=== PATIENT | female | born 1965 | race Caucasian/White ===

== ENCOUNTER → 2019-04-14 14:25 | Outpatient (ROUT) | payer OTHER, MEDICAID, SELFPAY ==
[2019-04-14 15:12] LABS: TSH w/ Reflex to FT4 1.19 uIU/mL (0.47-4.68)
== END ==
PROVIDERS: Visit Provider Internal Medicine
DX: E03.9 Hypothyroidism, unspecified (principal)
CPT/HCPCS: 84443

== ENCOUNTER → 2019-04-30 18:12 | Outpatient (ROUT) | payer OTHER, MEDICAID, SELFPAY ==
[2019-04-30 18:55] LABS: Erythrocyte Sedimentation Rate 4 MM/HR (0-20)
[2019-04-30 19:04] LABS: C-Reactive Protein Quant < 0.5 mg/dL (<1.0)
== END ==
PROVIDERS: Visit Provider Internal Medicine
DX: M25.50 Pain in unspecified joint (principal)
CPT/HCPCS: 85651; 86140

== ENCOUNTER → 2020-04-19 19:30 | Outpatient (ROUT) | payer OTHER, MEDICAID, SELFPAY ==
[2020-04-19 20:31] LABS: TSH w/ Reflex to FT4 1.19 uIU/mL (0.47-4.68)
== END ==
PROVIDERS: Visit Provider Internal Medicine
DX: E03.9 Hypothyroidism, unspecified (principal)
CPT/HCPCS: 84443

== ENCOUNTER → 2020-06-24 11:31 | Outpatient (CLI) | payer OTHER, MEDICAID, SELFPAY ==
[2020-06-24 12:50] LABS: Add Manual Diff / Slide Review NO; Basophils Absolute Auto 0 /uL (0-100); Basophils Percent Auto 0.8 % (0-2); Eosinophils Absolute Auto 100 /uL (0-450); Eosinophils Percent Auto 1.7 % (2-4); Hematocrit 42.3 % (36-46); Lymphocytes Absolute Auto 1300 /uL (1100-4500); Lymphocytes Percent Auto 22.7 % (25-40); Mean Corpuscular Hemoglobin 30.3 PG (26-34); Mean Corpuscular Volume 91.9 fL (80-100); Monocytes Absolute Auto 400 /uL (0-900); Monocytes Percent Auto 7.4 % (3-14); Neutrophils Absolute Auto 4000 /uL (1500-7000); Neutrophils Percent Auto 67.4 % (50-75); Platelet Count 267 X10^3/uL (150-400); Red Cell Distribution Width 13.3 % (11.6-14.8); White Blood Cell Count 5.9 X10^3/uL (4.5-11.0)
[2020-06-24 13:08] LABS: Alanine Aminotransferase 23 IU/L (<35); Albumin Globulin Ratio 1.5 (1.0-2.8); Alkaline Phosphatase 48 U/L (38-126); Aspartate Aminotransferase 33 IU/L (14-36); BUN Creatinine Ratio 19.4 (6-22); Bilirubin Total 0.5 mg/dL (0.2-1.3); Blood Urea Nitrogen 14 mg/dL (7-17); Calcium 10.1 mg/dL (8.4-10.2); Carbon Dioxide 30 mmol/L (22-32); Chloride 100 mmol/L (98-107); Estimated Glomerular Filt Rate > 60.0 mL/min (>60); Globulin 3.3 g/dL (1.7-4.1); Glucose 97 mg/dL (70-100); HEMOLYSIS < 15 (0-50); Potassium 4.1 mmol/L (3.4-5.1); Sodium 138 mmol/L (137-145); Total Protein 8.3 g/dL (6.3-8.2)
[2020-06-24 13:09] LABS: C-Reactive Protein Quant < 0.5 mg/dL (<1.0)
[2020-06-24 13:11] LABS: Rheumatoid Factor < 8.6 IU/mL (<12.0)
[2020-06-24 13:22] LABS: Erythrocyte Sedimentation Rate 4 MM/HR (0-20)
[2020-06-25 14:36] LABS: SS A Ro Sjogrens Antibody < 0.2 AI (0.0-0.9); SS B La Sjogrens Antibody < 0.2 AI (0.0-0.9)
[2020-06-27 13:09] LABS: ANA Screen, IFA Negative (.)
[2020-06-27 20:07] LABS: CCP Antibodies IgG/IgA 5 units (0-19)
== END ==
PROVIDERS: PCP Internal Medicine; Referring Provider Internal Medicine; Visit Provider Internal Medicine
DX: R68.2 Dry mouth, unspecified (principal); H04.123 Dry eye syndrome of bilateral lacrimal glands
CPT/HCPCS: 36415; 80053; 85025; 85651; 86038; 86140; 86200; 86235; 86430

== ENCOUNTER → 2022-02-12 16:51 | Outpatient (CLI) | payer OTHER, MEDICAID, SELFPAY ==
--- NOTE | 2022-02-12 16:53 | DI.RAD.S_ITS ---
PROCEDURE: XR CERVICAL SPINE 2V OR 3V INDICATIONS: neck pain TECHNIQUE: 3 view(s) of the cervical spine were acquired. COMPARISON: None. FINDINGS: Degenerative straightening of the usual cervical lordosis. Otherwise normal alignment. Vertebral body heights maintained. No suspicious lytic or blastic osseous lesion. From C4-C5 through C6-C7, there is disc height loss with degenerative endplate change including posterior osteophytic ridging of the endplates, along with facet and uncovertebral hypertrophy. IMPRESSION: Moderate midcervical degenerative changes. Consider MRI. Dictated by: Stew Lacy M.D. on 02/13/2022 at 14:32 Approved by: Stew Lacy M.D. on 02/13/2022 at 14:41
[2022-02-12 18:13] LABS: Glucose 105 mg/dL (70-100)
[2022-02-12 18:58] LABS: Hemoglobin A1C% w Est Avg Glu 5.5 % (4.0-6.0)
== END ==
PROVIDERS: PCP Internal Medicine; Referring Provider Internal Medicine; Visit Provider Internal Medicine
DX: M47.812 Spondylosis without myelopathy or radiculopathy, cervical region (principal); R73.01 Impaired fasting glucose
CPT/HCPCS: 36415; 72040; 82947; 83036

== ENCOUNTER → 2022-03-06 15:16 | Outpatient (CLI) | payer OTHER, MEDICAID, SELFPAY ==
--- NOTE | 2022-03-06 | DI.MG.S_ITS ---
BILATERAL DIGITAL SCREENING MAMMOGRAM 3D/2D WITH CAD: 03/06/2022 CLINICAL: Routine screening. Family history of breast cancer. Comparison is made to exams dated: 05/19/2018 mammogram, 02/16/2015 mammogram, and 04/24/2012 mammogram - [facility]. Both breasts are extremely dense, which lowers the sensitivity of mammography (category d />75% glandular tissue). Current study was also evaluated with a Computer Aided Detection (CAD) system. There are benign calcifications in the left breast. No significant masses, calcifications, or other findings are seen in either breast. There has been no significant interval change. IMPRESSION: BENIGN There is no mammographic evidence of malignancy. A 1 year screening mammogram is recommended. Based on Tyrer-Cuzick model (a risk assessment model), the patient's lifetime risk is 29.7% and her 10 year risk is 11.8%. If a patient has an elevated risk, a more comprehensive evaluation should be considered and/or a referral to a genetic counselor. The [employer], [employer], and NCCN Guidelines advise the consideration of Breast MRI as an adjunct to screening mammography in patients whose Lifetime risk to develop breast cancer is 20% or higher. This exam was interpreted at Station ID: [id number]. NOTE: For mammograms, a report in lay terms will be sent to the patient. Approximately 15% of breast malignancies will not be visualized mammographically. In the management of a palpable breast mass, a negative mammogram must not discourage biopsy of a clinically suspicious lesion. Electronically Signed By: Alethea salazar/tonja:03/07/2022 08:50:38 letter sent: Normal Exam ACR BI-RADS Category 2: Benign Finding(s) 3342F
== END ==
PROVIDERS: PCP Internal Medicine; Referring Provider Internal Medicine; Visit Provider Internal Medicine
DX: Z12.31 Encounter for screening mammogram for malignant neoplasm of breast (principal); Z80.3 Family history of malignant neoplasm of breast
CPT/HCPCS: 77063; 77067

== ENCOUNTER → 2022-05-02 11:08 | Outpatient (CLI) | payer OTHER, MEDICAID, SELFPAY ==
[2022-05-03 08:45] LABS: Varicella IgG Antibody 544 index (Immune >165)
== END ==
PROVIDERS: PCP Internal Medicine; Referring Provider Internal Medicine; Visit Provider Internal Medicine
DX: Z20.9 Contact with and (suspected) exposure to unspecified communicable disease (principal); Z01.812 Encounter for preprocedural laboratory examination; Z20.822 Contact with and (suspected) exposure to COVID-19
CPT/HCPCS: 36415; 86787; 87635; C9803

== ENCOUNTER → 2022-05-02 11:08 | Outpatient (CLI) | payer OTHER, MEDICAID, SELFPAY ==
[2022-05-02 12:00] LABS: COVID19 -Nasal RAPID Negative (Negative)
== END ==
PROVIDERS: PCP Internal Medicine; Visit Provider Surgery
DX: Z01.812 Encounter for preprocedural laboratory examination (principal); Z20.822 Contact with and (suspected) exposure to COVID-19
CPT/HCPCS: 87635

== ENCOUNTER 2022-05-03 09:44 | Day surgery (SDC) | payer OTHER, MEDICAID, SELFPAY ==
[2022-05-03 09:56] VITALS: BMI 20.7
[2022-05-03 10:05] VITALS: BP 122/81; PULSE 66; RESP 15; TEMP 36.3; O2SAT 99
[2022-05-03] MEDS: LACTATED RINGERS 1,000 ML 150 ML IV (11:09)
--- NOTE | 2022-05-03 11:13 | PM.HP.1 ---
History of Present Illness History of Present Illness Date Patient Seen: 05/03/22 Time Patient Seen: 11:14 Chief complaint: SDC Narrative: Brissa is a 57-year-old woman who is here for a screening colonoscopy. She has never had a colonoscopy before. She has no known family history of colon cancer. Patient History Medical History Acquired hypothyroidism Arteriovenous malformation Chronic insomnia DJD (degenerative joint disease), cervical Impaired fasting glucose Menopausal syndrome Surgical History Status post delivery Status post delivery Status post dilation and curettage (07/13/16) Status post hysteroscopy (07/13/16) Family & Social History Family History Grandfather Cancer Grandmother Diabetes mellitus Mother Age: 88 Alzheimer's disease Grandfather Cancer Grandmother Hypertension Social History: household members spouse,children other Running, walking, swimming Tobacco & Substance use: Smoking Status Never smoker alcohol intake current alcohol intake frequency a few times a week Substance Use Type does not use Meds Home Medications and Allergies Home Medications Medication Instructions Recorded Confirmed Type cyclosporine 0.05 % eye drops in a 1 drp EYE-BOTH DAILY 02/12/22 05/03/22 History dropperette zaleplon 5 mg capsule 5 mg PO BEDTIME PRN sleep #30 caps 02/12/22 05/03/22 Rx estradiol 0.0375 mg/24 hr weekly 1 patch transdermal QWEEK 02/19/22 05/03/22 Rx transdermal patch Menopause symptoms #12 ea levothyroxine 75 mcg tablet 75 mcg PO DAILY #90 tabs 03/08/22 05/03/22 Rx progesterone micronized 100 mg 100 mg PO QAM 30 days #30 caps 04/04/22 05/03/22 Rx capsule (Prometrium) Allergies Allergy/AdvReac Type Severity Reaction Status Date / Time No Known Drug Allergies Allergy Verified 05/03/22 10:04 Exam Vital Signs (past 8 hours): - 05/03/22 10:05 Temperature 97.3 F L Pulse Rate 66 Respiratory Rate 15 Blood Pressure 122/81 Pulse Oximetry 99 Oxygen Delivery Method Room Air Oxygen Delivery Method Room Air Const General: healthy appearing Assessment & Plan Assessment and plan (1) Colon cancer screening: Status: Acute Plan Brissa is a 57-year-old woman who is here for a screening colonoscopy today. The risks and benefits of colonoscopy were described and she would like to proceed. Time Spent With Patient Critical Care time: I spent a total of [] minutes of critical care time on this patient's care today; this time is exclusive of procedural time.
[2022-05-03] MEDS: fentaNYL 100 MCG/2 ML INJ 150 MCG IV (11:48)
[2022-05-03] MEDS: MIDAZOLAM 5 MG/5 ML VIAL 7 MG IV (11:48)
--- NOTE | 2022-05-03 11:48 | PM.OP.COLON ---
Operative Date/Time/Diagnoses Date of procedure: 05/03/22 Time of procedure: 11:49 Pre-op diagnosis: Colon cancer screening Post-op diagnosis: same Procedure & Clinicians Study performed: Colonoscopy Same procedure as scheduled: Yes Surgeon: Ki Stokes Procedure Notes Procedure in detail: Surgeon: Ki Stokes MD Procedure: The patient was brought to the endoscopy suite, placed in left lateral decubitus position. The patient was connected to monitoring devices. A time-out was performed. Sedation was administered. Once the patient was adequately sedated, a digital rectal exam was performed and was normal. The scope was then inserted and advanced to the cecum where the appendiceal orifice was identified and photographed. The scope was then slowly withdrawn over greater than 6 minutes. The mucosa was thoroughly inspected. There were no polyps or diverticula noted. The scope was retroflexed in the rectum. No abnormalities were noted. The scope was straightened and removed. The patient was awakened and brought to recovery. Versed: 7 mg Fentanyl: 150 mcg EBL: 0 Findings: Normal colon Scope withdrawal time: 6 Sedation minutes: 28 Post-procedure Recommendations: Colonoscopy in 10 years Disposition: PACU
[2022-05-03 11:51] VITALS: BP 89/57; PULSE 85; RESP 16; TEMP 36.3; O2SAT 100
[2022-05-03 11:56] VITALS: BP 93/49; PULSE 78; RESP 16; O2SAT 100
[2022-05-03 12:01] VITALS: BP 97/63; PULSE 73; RESP 14; O2SAT 99
[2022-05-03 12:22] VITALS: BP 110/70; PULSE 68; RESP 16; TEMP 36.8; O2SAT 98
== END 2022-05-03 12:24 | disposition home or self-care (01) ==
PROVIDERS: PCP Internal Medicine; Referring Provider Surgery; Visit Provider Surgery
PROC: 0DJD8ZZ Inspection of Lower Intestinal Tract, Via Natural or Artificial Opening Endoscopic (ICD-10-PCS; CPT 45378; principal; 2022-05-03 10:45)
DX: Z12.11 Encounter for screening for malignant neoplasm of colon (principal)
CPT/HCPCS: 45378; 99152; 99153; J2250; J3010

== ENCOUNTER → 2023-02-18 08:15 | Outpatient (CLI) | payer OTHER, MEDICAID, SELFPAY ==
[2023-02-18 10:22] LABS: Blood Urea Nitrogen 13 mg/dL (7-17); Calcium 8.8 mg/dL (8.4-10.2); Carbon Dioxide 28 mmol/L (22-32); Chloride 102 mmol/L (98-107); Cholesterol 162 mg/dL (140-199); Estimated Glomerular Filt Rate > 60 mL/min (>60); Glucose 93 mg/dL (70-100); HDL Cholesterol 69 mg/dL (40-60); HEMOLYSIS < 15 (0-50); LDL Cholesterol Calculated 82 mg/dL (<100); Potassium 3.9 mmol/L (3.4-5.1); Sodium 136 mmol/L (137-145); Triglycerides 53 mg/dL (35-150)
[2023-02-19 03:12] LABS: x Labcorp Estim. Avg Glu (eAG) 117 mg/dL (.); x Labcorp Hemoglobin A1c 5.7 % (4.8-5.6)
== END ==
PROVIDERS: PCP Internal Medicine; Referring Provider Internal Medicine; Visit Provider Anesthesiology
DX: E03.9 Hypothyroidism, unspecified (principal); R73.01 Impaired fasting glucose
CPT/HCPCS: 36415; 80048; 80061; 83036

== ENCOUNTER 2023-03-29 11:10 | Emergency (ER) | payer OTHER, MEDICAID, SELFPAY ==
[2023-03-29 11:15] VITALS: BP 145/91; PULSE 80; RESP 16; TEMP 36.2; O2SAT 99; BMI 20.7
--- NOTE | 2023-03-29 12:01 | ED.BACK ---
HPI - Back Pain/Injury <Alisson Garza PA-C - Last Filed: 03/29/23 15:36> General Chief Complaint: Back Pain/Injury Stated Complaint: pain in lower back snapped something Time Seen by Provider: 03/29/23 12:01 History of Present Illness HPI Narrative: patient is a 57-year-old female with history of degenerative joint disease in her cervical spine, av malformation, hypothyroidism, generalized anxiety disorder presenting for evaluation of sudden onset back pain and an audible pop after lifting her neighbor from the floor. She states she felt something snap in her lower back. She sat on the floor and was helped up they are . She states her position of comfort is primarily standing although she can sit. She notes significant pain with forward flexion and extension but can tolerate gentle lateral rotation. She has taken aleve around 8am and applied ice. She notes she was able to walk home down the street after the event. She denies any numbness or weakness in her legs nor any urinary burning nor urine or bowel incontinence. She states she is concerned she may have Chris-Danlos not previously diagnosed because of increased ligament and connective tissue issues over the years. She states that she has treated these problems with physical therapy and self-care. She reports that she has been treated for degenerative disc disease in her lower back muscles her cervical spine. She notes that she had ongoing lower back pain for the last 5 years after falling down hard on her bottom while running. She denies any previous procedures on her back. She denies any fever or tenderness to external pressure of her lower back. she reports taking medication for hypothyroidism as well as external progesterone. Related Data Home Medications Medication Instructions Recorded Confirmed cyclosporine 0.05 % eye drops in a 1 drp EYE-BOTH DAILY 02/12/22 12/31/22 dropperette Previous Rx's Medication Instructions Recorded zaleplon 5 mg capsule 5 mg PO BEDTIME PRN sleep #30 caps 12/05/22 estradiol 0.0375 mg/24 hr weekly See Rx Instructions .Route 01/02/23 transdermal patch .COMPLEX #20 ea progesterone micronized 200 mg 200 mg PO BEDTIME #30 caps 02/22/23 capsule levothyroxine 75 mcg tablet 75 mcg PO DAILY #90 tabs 03/14/23 cyclobenzaprine 5 mg tablet 5 mg PO TID PRN muscle spasm #20 03/29/23 tabs Allergies Allergy/AdvReac Type Severity Reaction Status Date / Time No Known Drug Allergies Allergy Verified 03/29/23 11:18 Review of Systems <Alisson Garza PA-C - Last Filed: 03/29/23 15:36> Review of Systems Narrative: Per HPI Patient History <Alisson Garza PA-C - Last Filed: 03/29/23 15:36> Medical History (Updated 03/29/23 @ 14:22 by Alisson Garza PA-C) Acquired hypothyroidism Arteriovenous malformation Chronic insomnia DJD (degenerative joint disease), cervical Generalized anxiety disorder Impaired fasting glucose Menopausal syndrome Surgical History Status post delivery Status post delivery Status post dilation and curettage (07/13/16) Status post hysteroscopy (07/13/16) Family History Grandfather Cancer Grandmother Diabetes mellitus Mother Age: 88 Alzheimer's disease Grandfather Cancer Grandmother Hypertension Social History (Updated 10/30/17 @ 20:40 by Wilma Barraza) number of children: 1 household members: spouse and children pets and animals: Yes education level: college occupational status: 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[employer]: [employer] travel history: other leisure activities: reading and other other: Running, walking, swimming seatbelt use: always working smoke detector in home: Yes fire extinguisher in home: Yes carbon monox detector in home: No firearms in home: No Smoking Status: Never smoker alcohol intake: current substance use type: does not use during the past year weight has: remained stable well-balanced diet: daily or most days daily servings fruits/ve-4 caffeine: Yes (2+ caffeine drinks per day) eating out: rarely or never Type(s) of exercise: other and running frequency: daily duration: other Smoking Status: Never smoker alcohol intake frequency: a few times a week Substance Use Type: does not use Exam <Alisson Garza PA-C - Last Filed: 03/29/23 15:36> Initial Vital Signs Initial Vital Signs: Vital Signs Temperature 97.1 F L 03/29/23 11:15 Pulse Rate 80 03/29/23 11:15 Respiratory Rate 16 03/29/23 11:15 Blood Pressure 145/91 H 03/29/23 11:15 Pulse Oximetry 99 03/29/23 11:15 Oxygen Delivery Method Room Air 03/29/23 11:15 GENERAL: 57 year old patient appears stated age. Well-developed patient, in no acute distress. HEAD: Atraumatic. Normocephalic. EYES: Pupils equal round. No scleral icterus. No injection or drainage. CARDIOVASCULAR: Regular rate and rhythm without murmurs, gallops, or rubs. RESPIRATORY: speaking comfortably in normal tone of voice EXTREMITIES: No edema or joint tenderness. 5/5 knee flexion extension and right and left leg hip flexion and extension, patient has pain with straight leg raise both legs in her lower back, no numbness or radiation of pain reported during examination BACK:Slight left leaning scoliosis palpated over upper lumbar spine, nontender to palpation of cervical, thoracic and lumbar sacral spine, patient notes pain around L5, unaffected by palpation, she demonstrates limited range of motion with lateral flexion, unable to flex back forward or extend backwards due to pain, NEURO: AOx3. DTR patellar 2+ bilaterally SKIN: No rash or erythema of visible areas <Yony Scott DO - Last Filed: 03/30/23 06:33> Initial Vital Signs Initial Vital Signs: Vital Signs Temperature 97.1 F L 03/29/23 11:15 Pulse Rate 80 03/29/23 11:15 Respiratory Rate 16 03/29/23 11:15 Blood Pressure 145/91 H 03/29/23 11:15 Pulse Oximetry 99 03/29/23 11:15 Oxygen Delivery Method Room Air 03/29/23 11:15 Course <Alisson Garza PA-C - Last Filed: 03/29/23 15:36> Orders Ordered: Discontinued Medications Cyclobenzaprine HCl (Cyclobenzaprine 10 Mg Tablet) 10 mg PO NOW ONE Stop: 03/29/23 12:37 Last Admin: 03/29/23 12:41 Dose: 10 mg Documented By: JANET Vital Signs Vital signs: Vital Signs - 8 hr 03/29/23 11:15 03/29/23 14:40 Temperature 97.1 F L Pulse Rate 80 73 Respiratory Rate 16 12 Blood Pressure 145/91 H 119/96 H Pulse Oximetry 99 99 Oxygen Delivery Method Room Air Room Air <Yony Scott DO - Last Filed: 03/30/23 06:33> Orders Ordered: Discontinued Medications Cyclobenzaprine HCl (Cyclobenzaprine 10 Mg Tablet) 10 mg PO NOW ONE Stop: 03/29/23 12:37 Last Admin: 03/29/23 12:41 Dose: 10 mg Documented By: JANET Vital Signs Vital signs: Vital Signs - 8 hr 03/29/23 11:15 03/29/23 14:40 Temperature 97.1 F L Pulse Rate 80 73 Respiratory Rate 16 12 Blood Pressure 145/91 H 119/96 H Pulse Oximetry 99 99 Oxygen Delivery Method Room Air Room Air MDM - Back Pain/Injury <Alisson Garza PA-C - Last Filed: 03/29/23 15:36> Imaging Data Lumbar Spine Xray: My Impression: PROCEDURE:? XR LUMBAR SPINE 2-3V ? INDICATIONS:? lower back pain after lifting ? TECHNIQUE:? 3 views of the lumbar spine were acquired.? ? COMPARISON:? [facility], L-SPINE 2-3 VIEWS, 11/07/2016, 14:13. ? FINDINGS:? ? Bones:? 5 tij-gvy-tzubwpn vertebrae are present.? There is normal bony alignment.? Mild L4 superior appetite compression, not previously present, potentially acute.? No suspicious bony lesions.? ? Soft tissues:? Overlying bowel gas pattern is normal.? No suspicious soft tissue calcifications.? ? ? IMPRESSION:? A mild superior endplate compression fracture of L4 may potentially be acute. ? Comment:? Consider lumbar spine MRI for further evaluation.? ? ? Dictated by: Jm Wagoner M.D. on 03/29/2023 at 14:00 ? ? Approved by: Jm Wagoner M.D. on 03/29/2023 at 14:01 ? Sacroiliac Joint Xray: Radiologist's Impression: PROCEDURE:? XR SACROILIAC JOINT MIN 3V ? INDICATIONS:? lower back pain ? TECHNIQUE:? 3 views of the sacroiliac joints were acquired.? ? COMPARISON:? [facility], , XR LUMBAR SPINE 2-3V, 03/29/2023, 12:38. ? FINDINGS:? ? Bones:? No bony erosions or ankylosis.? No suspicious bony lesions.? No fractures. ? It is noted that on the comparison lumbar spine plain films, there is a mild L4 superior endplate compression which may potentially be acute.? ? Soft tissues:? Overlying bowel gas pattern is normal.? No suspicious soft tissue densities.? ? ? IMPRESSION:? ? 1. No acute bony abnormality involving the SI joints.? Otherwise unremarkable SI joints. ? 2. A mild superior endplate compression fracture of L4, potentially acute, is noted on the accompanying lumbar spine plain films.? ? Comment:? Lumbar spine MRI may potentially be helpful. ? ? Dictated by: Jm Wagoner M.D. on 03/29/2023 at 14:04 ? ? Approved by: Jm Wagoner M.D. on 03/29/2023 at 14:05 ? MDM Narrative Medical decision making narrative: CC: This is a new problem, uncertain diagnosis possible systemic effects Complicating co-morbidities: degenerative joint disease of cervical spine Corroborating data: Data collected from: patient, Social determinants of health that may influence the patients condition: none Medical records reviewed: History Differential considered: epidural hematoma, spinal abscess, spondylolisthesis, lumbar fracture, cauda equina syndrome Exam documented above, pertinent findings include: Patient is able to stand and sit and walk with some pain, she has intact 5/5 knee flexion and extension it has intact hip flexion strength, DTR patellar 2+ bilaterally, non tender to palpation of lower back, no bruising or erythema noted, patient denies fever. Imaging studies independently reviewed: X-ray of lumbar and sacroiliac spine show mild superior endplate compression fracture of L4 which may possibly be acute. Consultations: Discussed case with Dr. Scott. Treatments: Flexeril 10 mg, patient reported some improvement after treatment. Re-evaluations: No significant change in pain after Flexeril given, patient is walking, discussed possibility of steroid for pain which she declines. Discussed that she may take another Alleve tonight. Discussion: X-ray showed mild superior endplate compression fracture of L4 which may possibly be acute. Discussed these results with patient. Advised her to follow up with Orthopedic for further evaluation and management. I recommend that she avoid activities that cause increased pain but she may continue gentle jwiov-qu-qjjywf as tolerated. She may treat with Tylenol and naproxen and a muscle relaxer which I have prescribed for her. Recommend that she alternate heat and ice. Discussed that she is to return to the emergency department if she should develop any numbness, worsening pain, fever, bowel or bladder incontinence. Disposition: see below, along with detailed discharge instructions that have been reviewed with patient as well as indications for ED re-evaluation and additional outpatient follow up Discharge Plan Departure Patient Disposition: Home Clinical Impression: Lower back pain, Vertebral compression fracture Instructions: DI for Low Back Pain Activity Restrictions/Additional Instructions: You were seen today for evaluation of acute onset of low back pain. We did x-ray imaging of your lumbar and sacral spine which showed a mild superior endplate compression fracture of L4 which is possibly acute. No treatment is needed for this today, however I do recommend that you follow up with Orthopedic for further evaluation and management. You may follow up with an orthopedic of your choosing or call [facility] at [phone] for a follow up appointment to continue care and evaluation. Please notify them that you were seen in the ER today. In the meantime, I recommend that you continue naproxen every 12 hours. In addition, you may take two 500mg tablets of Tylenol every 6 hours. Do not take more than 4 g of Tylenol in a 24 hour period. I have included a prescription of a muscle relaxer for you to take to also help relieve your pain. This may make you sleepy so please do not drive or do any sensitive activities requiring full attention while taking this medicine. I recommend treatment with alternating ice and heat packs and gentle eyiiy-va-wvukpv as tolerated such as light walking around the house. Please avoid any activities that increase your back pain such as lifting. Please return to emergency department if you develop any numbness of your lower legs, any urinary or stool incontinence, fever or significantly worsening pain despite conservative management at home, Or other concerning signs or symptoms. Prescriptions: New cyclobenzaprine 5 mg tablet 5 mg PO TID PRN (Reason: muscle spasm) Qty: 20 0RF Rx Instructions: May take 1-2 tablets as needed, may cause drowsiness No Action zaleplon 5 mg capsule 5 mg PO BEDTIME PRN (Reason: sleep) Qty: 30 1RF Rx Instructions: must avoid high-fat meal/food immediately before taking dose estradiol 0.0375 mg/24 hr patch weekly See Rx Instructions .ROUTE .COMPLEX Qty: 20 3RF Dose Instruction: PLACE 1 PATCH ONTO THE SKIN EVERY WEEK FOR MENOPAUSE SYMPTOMS Rx Instructions: PLACE 1 PATCH ONTO THE SKIN EVERY WEEK FOR MENOPAUSE SYMPTOMS progesterone micronized 200 mg capsule 200 mg PO BEDTIME Qty: 30 3RF levothyroxine 75 mcg tablet 75 mcg PO DAILY Qty: 90 3RF Rx Instructions: Please d/c the 25 mcg. Patient is on 75 mcg now. cyclosporine 0.05 % dropperette 1 drp EYE-BOTH DAILY Referrals: Yohannes Walton MD [Primary Care Provider] - Stand Alone Forms: Patient Portal/API <Yony Scott DO - Last Filed: 03/30/23 06:33> Cosign ED Attending Cosfroilanature Attestation: I was immediately available in the department for consultation. Documentation has been reviewed. I agree with assessment and plan.
--- NOTE | 2023-03-29 12:30 | DI.RAD.S_ITS ---
PROCEDURE: XR LUMBAR SPINE 2-3V INDICATIONS: lower back pain after lifting TECHNIQUE: 3 views of the lumbar spine were acquired. COMPARISON: [facility], , L-SPINE 2-3 VIEWS, 11/07/2016, 14:13. FINDINGS: Bones: 5 jbr-wsk-crmfuqi vertebrae are present. There is normal bony alignment. Mild L4 superior appetite compression, not previously present, potentially acute. No suspicious bony lesions. Soft tissues: Overlying bowel gas pattern is normal. No suspicious soft tissue calcifications. IMPRESSION: A mild superior endplate compression fracture of L4 may potentially be acute. Comment: Consider lumbar spine MRI for further evaluation. Dictated by: Jm Wagoner M.D. on 03/29/2023 at 14:00 Approved by: Jm Wagoner M.D. on 03/29/2023 at 14:01
--- NOTE | 2023-03-29 12:31 | DI.RAD.S_ITS ---
PROCEDURE: XR SACROILIAC JOINT MIN 3V INDICATIONS: lower back pain TECHNIQUE: 3 views of the sacroiliac joints were acquired. COMPARISON: [facility], CR, XR LUMBAR SPINE 2-3V, 03/29/2023, 12:38. FINDINGS: Bones: No bony erosions or ankylosis. No suspicious bony lesions. No fractures. It is noted that on the comparison lumbar spine plain films, there is a mild L4 superior endplate compression which may potentially be acute. Soft tissues: Overlying bowel gas pattern is normal. No suspicious soft tissue densities. IMPRESSION: 1. No acute bony abnormality involving the SI joints. Otherwise unremarkable SI joints. 2. A mild superior endplate compression fracture of L4, potentially acute, is noted on the accompanying lumbar spine plain films. Comment: Lumbar spine MRI may potentially be helpful. Dictated by: Jm Wagoner M.D. on 03/29/2023 at 14:04 Approved by: Jm Wagoner M.D. on 03/29/2023 at 14:05
[2023-03-29] MEDS: CYCLOBENZAPRINE 10 MG TABLET PO (12:41)
[2023-03-29 14:40] VITALS: BP 119/96; PULSE 73; RESP 12; O2SAT 99
== END 2023-03-29 14:42 | disposition home or self-care (01) ==
PROVIDERS: Emergency Provider Physician Assistant; PCP Internal Medicine
DX: S32.049A Unspecified fracture of fourth lumbar vertebra, initial encounter for closed fracture (principal); M54.50 Low back pain, unspecified; X50.9XXA Other and unspecified overexertion or strenuous movements or postures, initial encounter
CPT/HCPCS: 72100; 72202; 99283

== ENCOUNTER → 2023-08-21 09:56 | Outpatient (CLI) | payer OTHER, MEDICAID, SELFPAY ==
[2023-08-21 10:43] LABS: Appearance Urine UA CLEAR; Bilirubin Urine UA NEGATIVE (NEGATIVE); Color Urine UA YELLOW; Glucose Urine UA NEGATIVE (Negative); Ketones Urine UA NEGATIVE (NEGATIVE); Leukocyte Esterase Urine UA NEGATIVE (NEGATIVE); Nitrite Urine UA NEGATIVE (Negative); Occult Blood Urine UA NEGATIVE (Negative); Protein Urine UA NEGATIVE (Negative); Specific Gravity Urine UA <=1.005 (1.000-1.035); Urobilinogen Urine UA 0.2 E.U./dL (0.2)
[2023-08-21 10:50] LABS: pH Urine UA 6.5 (4.5-8.0)
[2023-08-21 10:51] LABS: Bacteria Urine Few (2-10); Culture Indicated Urine Cult Not Indicated; RBC Urine 1-5/HPF (0-5/HPF); Squamous Epithelial Cell Urine 1-5 /HPF (0-5/HPF); Urine Volume 10mL (spun); WBC Urine 1-5/HPF (0-5/HPF)
== END ==
PROVIDERS: PCP Internal Medicine; Referring Provider Obstetrics & Gynecology; Visit Provider Obstetrics & Gynecology
DX: R30.0 Dysuria (principal); R35.0 Frequency of micturition
CPT/HCPCS: 81001

== ENCOUNTER → 2023-08-22 09:46 | Outpatient (CLI) | payer OTHER, MEDICAID, SELFPAY | PROVIDERS: PCP Internal Medicine; Visit Provider Obstetrics & Gynecology | DX: R30.0 Dysuria (principal) | CPT/HCPCS: 87086 ==

== ENCOUNTER → 2023-10-22 15:26 | Outpatient (CLI) | payer OTHER, MEDICAID, SELFPAY ==
[2023-10-22 16:25] LABS: Hemoglobin A1C% w Est Avg Glu 5.6 % (4.0-6.0)
== END ==
PROVIDERS: PCP Internal Medicine; Referring Provider Internal Medicine; Visit Provider Internal Medicine
DX: R73.01 Impaired fasting glucose (principal); E03.9 Hypothyroidism, unspecified
CPT/HCPCS: 36415; 83036

== ENCOUNTER → 2024-02-19 14:58 | Outpatient (CLI) | payer OTHER, MEDICAID, SELFPAY ==
[2024-02-19 17:43] LABS: TSH w/ Reflex to FT4 1.39 uIU/mL (0.47-4.68)
== END ==
PROVIDERS: PCP Internal Medicine; Referring Provider Internal Medicine; Visit Provider Internal Medicine
DX: E03.9 Hypothyroidism, unspecified (principal)
CPT/HCPCS: 36415; 84443

== ENCOUNTER → 2024-04-02 14:40 | Outpatient (CLI) | payer OTHER, MEDICAID, SELFPAY ==
[2024-04-02 17:33] LABS: Free T4, Direct Thyroxine 1.15 ng/dL (0.78-2.19); T4 Total Thyroxine 7.91 ug/dL (5.5-11.0); T7 (Free Thyroxine Index) 2.39 (1.65-3.89); Triiodothryronine T3 Uptake 30.2 % (23.5-40.5)
[2024-04-02 17:46] LABS: Thyroid Stimulating Hormone 1.48 uIU/mL (0.47-4.68)
== END ==
PROVIDERS: PCP Internal Medicine; Referring Provider Internal Medicine; Visit Provider Internal Medicine
DX: E03.9 Hypothyroidism, unspecified (principal)
CPT/HCPCS: 36415; 84436; 84439; 84443; 84479; 84481

== ENCOUNTER → 2024-04-10 15:11 | Outpatient (CLI) | payer OTHER, MEDICAID, SELFPAY ==
--- NOTE | 2024-04-10 15:12 | DI.RAD.S_ITS ---
PROCEDURE: XR DEXA AXIAL SKELETON INDICATIONS: Collapsed vertebra, not elsewhere classified, site COMPARISON: None. FINDINGS: Lumbar Spine: Bone mineral density 0.915 g/cm2, T score -1.2. Left Hip: Bone mineral density 0.680 g/cm2, T score -1.5. Left Femoral Neck: Bone mineral density 0.811 g/cm2, T score -1.1. Right Hip: Bone mineral density 0.702 g/cm2, T score -1.. Right Femoral Neck: Bone mineral density 0.825 g/cm2, T score -1.0. Fracture Risk Calculation (when applicable): 10-year fracture risk of a major osteoporotic fracture 12 percent and of a hip fracture 1 percent. (T score greater or equal to -1.0 to: NORMAL) (T score from -1.1 to -2.4: OSTEOPENIA) (T score less than or equal to -2.5: OSTEOPOROSIS) IMPRESSION: Mild osteopenia within the left hip and minimal in the lumbar spine. Follow-up guidelines as follows: Osteoporosis: Consider a repeat DEXA and Vertebral Fracture Assessment (VFA) exam in 2 years or sooner if medically necessary, to reassess this patient's status. Osteopenia: Consider a repeat DEXA in 2-3 years to reassess this patient's status, or if there is a new clinical indication. Normal: Consider a repeat DEXA in 5 years or sooner, or if there is a new clinical indication. All treatment decisions require clinical judgment and consideration of individual patient factors, including patient preferences, comorbidities, previous drug use, risk factors not captured in the FRAX model (e.g., frailty, falls, vitamin D deficiency, increased bone turnover, interval significant decline in bone density ) and possible under- or over-estimation of fracture risk by FRAX. In addition, the NOF Guide recommends that FDA-approved medical therapies be considered in postmenopausal women and men age >= 50 years with a: * Hip or vertebral (clinical or morphometric) fracture * T-score of <=-2.5 at the spine or hip * Ten-year fracture probability by FRAX of >= 3% for hip fracture or >=20% for major osteoporotic fracture. People with diagnosed cases of osteoporosis or at high risk for fracture should have regular bone mineral density tests. For patients eligible for Medicare, routine testing is allowed once every 2 years. The testing frequency can be increased to one year for patients who have rapidly progressing disease, those who are receiving or discontinuing medical therapy to restore bone mass, or have additional risk factors. Dictated by: Cleo William M.D. on 04/10/2024 at 19:56 Approved by: Cleo William M.D. on 04/10/2024 at 19:57
== END ==
PROVIDERS: PCP Internal Medicine; Referring Provider Internal Medicine; Visit Provider Internal Medicine
DX: M85.852 Other specified disorders of bone density and structure, left thigh (principal); M48.50XA Collapsed vertebra, not elsewhere classified, site unspecified, initial encounter for fracture
CPT/HCPCS: 77080

== ENCOUNTER 2024-09-21 10:24 | Emergency (ER) | payer OTHER, SELFPAY ==
[2024-09-21] VITALS (10 sets, daily range): BP systolic 125–166; BP diastolic 77–94; PULSE 62–78; RESP 16–18; TEMP 36.6; O2SAT 98–100
--- NOTE | 2024-09-21 10:52 | ED.GENADULT ---
HPI - General Adult General Chief complaint: Urogenital-Female Stated complaint: UTI, difficulty urinating, [facility] Time Seen by Provider: 09/21/24 10:42 Source: patient Mode of arrival: Ambulatory History of Present Illness HPI narrative: 59-year-old female complains of 2 weeks duration intermittent painful urination, frequency of urination, some urgency. No fevers or chills. No back pain. No nausea or vomiting. No recent antibiotics. Has had history of urinary tract infection before but not for many years. Related Data Home Medications Medication Instructions Recorded Confirmed cyclosporine 0.09 % eye drops in a 1 drp EYE-BOTH BID 09/21/24 09/21/24 dropperette (Cequa) oxymetazoline 1 % topical cream 1 applic topical QAM 09/21/24 09/21/24 (Rhofade) Previous Rx's Medication Instructions Recorded estradiol 0.0375 mg/24 hr weekly 1 patch transdermal QWEEK #12 ea 01/08/24 transdermal patch levothyroxine 75 mcg tablet 75 mcg PO DAILY #90 tabs 03/06/24 progesterone micronized 200 mg 200 mg PO DAILY #30 caps 06/08/24 capsule zaleplon 5 mg capsule 5 mg PO BEDTIME PRN sleep #30 caps 09/10/24 Allergies Allergy/AdvReac Type Severity Reaction Status Date / Time No Known Drug Allergies Allergy Verified 09/21/24 07:54 Patient History Medical History (Updated 09/21/24 @ 14:44 by Hilario Hassan MD) Family history of Alzheimer's disease Left carpal tunnel syndrome Osteopenia Generalized anxiety disorder DJD (degenerative joint disease), cervical Chronic insomnia Impaired fasting glucose Arteriovenous malformation Menopausal syndrome Acquired hypothyroidism Surgical History Status post hysteroscopy (07/13/16) Status post dilation and curettage (07/13/16) Status post delivery Status post delivery Family History Grandfather Cancer Grandmother Diabetes mellitus Mother Age: 89 Alzheimer's disease Grandfather Cancer Grandmother Hypertension Social History (Updated 10/30/17 @ 20:40 by Wilma Barraza) number of children: 1 household members: spouse and children pets and animals: Yes education level: college occupational status: 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ism: [employer] travel history: other leisure activities: reading and other other: Running, walking, swimming seatbelt use: always working smoke detector in home: Yes fire extinguisher in home: Yes carbon monox detector in home: No firearms in home: No Smoking Status: Never smoker alcohol intake: current substance use type: does not use during the past year weight has: remained stable well-balanced diet: daily or most days daily servings fruits/ve-4 caffeine: Yes (2+ caffeine drinks per day) eating out: rarely or never Type(s) of exercise: other and running frequency: daily duration: other Smoking Status: Never smoker alcohol intake frequency: a few times a week Exam Narrative Exam Narrative: GENERAL: Well-developed patient, in mild distress. HEAD: Atraumatic. Normocephalic. EYES: Pupils equal round and reactive. Extraocular motions intact. No scleral icterus. No injection or drainage. ENT: Nose without bleeding, purulent drainage. Throat without erythema, tonsillar hypertrophy or exudate. Airway patent. NECK: Trachea midline. Non tender CARDIOVASCULAR: Regular rate and rhythm without murmurs, gallops, or rubs. RESPIRATORY: Clear to auscultation. Breath sounds equal bilaterally. No wheezes, rales, or rhonchi. GASTROINTESTINAL: Abdomen soft, non-tender, nondistended. EXTREMITIES: No edema or joint tenderness. BACK: Nontender without deformity or crepitance. No flank tenderness. NEURO: AOx3. Motor functions grossly nonfocal SKIN: No rash or erythema of visible areas Initial Vital Signs Initial Vital Signs: Vital Signs Temperature 97.9 F 09/21/24 10:39 Pulse Rate 78 09/21/24 10:39 Respiratory Rate 18 09/21/24 10:39 Blood Pressure 159/90 H 09/21/24 10:39 Pulse Oximetry 100 09/21/24 10:39 Oxygen Delivery Method Room Air 09/21/24 10:39 Course Orders Ordered: ED Orders 09/21/24 14:40 Chlamydia Gonorrhea PCR -URINE Stat Discontinued Medications Ondansetron HCl (Ondansetron 4 Mg/2 Ml Inj) 4 mg IV NOW PRN PRN Reason: Nausea And Vomiting Ondansetron HCl (Ondansetron 4 Mg Odt) 4 mg SL NOW PRN PRN Reason: Nausea And Vomiting Vital Signs Vital signs: Vital Signs - 8 hr 09/21/24 13:10 09/21/24 13:11 09/21/24 13:11 Pulse Rate 73 72 Respiratory Rate Blood Pressure 136/77 Pulse Oximetry 100 100 Oxygen Delivery Method 09/21/24 13:30 09/21/24 13:30 09/21/24 14:00 Pulse Rate 76 77 Respiratory Rate Blood Pressure 125/81 Pulse Oximetry 100 100 Oxygen Delivery Method 09/21/24 14:00 09/21/24 15:00 Pulse Rate 62 Respiratory Rate 16 Blood Pressure 135/79 136/87 Pulse Oximetry 98 Oxygen Delivery Method Room Air Medical Decision Making Lab Data Lab results reviewed: Yes I reviewed the patient's lab results. Lab results narrative: White blood cell count 8900, hemoglobin 13.1, platelets adequate. Glucose 113. Normal renal function with BUN 13 and creatinine 0.58. Sodium mildly low 132 noted, normal potassium. Normal serum CO2. Liver functions unremarkable. Urine dip negative. Urinalysis negative. 09/21/24 11:08 09/21/24 11:08 Labs: Lab Results 09/21/24 09/21/24 09/21/24 Range/Units 10:46 11:08 14:40 WBC 8.9 (4.5-11.0) X10^3/uL RBC 4.05 (4.0-5.2) X10^6/uL Hgb 13.1 (12.0-16.0) g/dL Hct 38.1 (36-46) % MCV 94.1 (80-100) fL MCH 32.4 (26-34) PG MCHC 34.4 (30-36) % RDW 12.8 (11.6-14.8) % Plt Count 245 (150-400) X10^3/uL Neut % (Auto) 85.4 H (50-75) % Lymph % (Auto) 8.1 L (25-40) % [place] % (Auto) 5.6 (3-14) % Eos % (Auto) 0.3 L (2-4) % Baso % (Auto) 0.6 (0-2) % Neut # (Auto) 7600 H (9153-3724) /uL Lymph # (Auto) 700 L (0315-0596) /uL [place] # (Auto) 500 (0-900) /uL Eos # (Auto) 0 (0-450) /uL Baso # (Auto) 100 (0-100) /uL Sodium 132 L (137-145) mmol/L Potassium 3.4 (3.4-5.1) mmol/L Chloride 100 (98-107) mmol/L Carbon Dioxide 25 (22-32) mmol/L BUN 13 (7-17) mg/dL Creatinine 0.58 (0.52-1.04) mg/dL Estimated GFR > 60 (>60) mL/min BUN/Creatinine Ratio 22.4 H (6-22) Glucose 113 H (80-110) mg/dL Calcium 9.1 (8.4-10.2) mg/dL Total Bilirubin 0.6 (0.2-1.3) mg/dL AST 24 (14-36) IU/L ALT 18 (<35) IU/L Alkaline Phosphatase 45 (38-126) U/L Ammonia < 9 L (9-30) umol/L Total Protein 7.1 (6.3-8.2) g/dL Albumin 4.4 (3.5-5.0) g/dL Globulin 2.7 (1.7-4.1) g/dL Albumin/Globulin Ratio 1.6 (1.0-2.8) TSH 4.29 (0.47-4.68) uIU/mL Urine RBC None seen (0-5/HPF) Urine WBC None seen (0-5/HPF) Ur Squamous Epith Cells 1-5 /hpf (0-5/HPF) Urine Bacteria None seen (None) Urine Mucus 1+ H (Negative) Ur Culture Indicated? Cult not indicated Vol Urine Centrifuged Low vol <10ml (spun) A Ethyl Alcohol < 10 ( - 10) mg/dL Ur Chlamydia DNA (PCR) Not detected N gonorrhoeae DNA (PCR) Not detected Urine Dip Bedside Urine Glucose Negative Bedside Urine Bilirubin + 1 Bedside Urine Ketone - Negative Urine Specific [place] 1.020 Bedside Urine Occult Blood - Negative Bedside Urine pH 6.0 Bedside Urine Protein +/- 15 Bedside Urine Urobilinogen - Negative Bedside Urine Nitrite - Negative Bedside Urine Leukocytes - Negative Esterase Point of care testing: Urine Dip Bedside Urine Glucose Negative Bedside Urine Bilirubin + 1 Bedside Urine Ketone - Negative Urine Specific [place] 1.020 Bedside Urine Occult Blood - Negative Bedside Urine pH 6.0 Bedside Urine Protein +/- 15 Bedside Urine Urobilinogen - Negative Bedside Urine Nitrite - Negative Bedside Urine Leukocytes - Negative Esterase MDM Narrative Medical decision making narrative: 59-year-old female with painful urination of unclear cause. No fever, sirs screen negative. Abdominal exam unremarkable. Unremarkable vitals. Urine dip negative. Serum studies sent. Serum studies also unremarkable. Bladder scan, PVR not elevated, was able to empty quite well. Urine GC chlamydia sent, results are pending at this time. Patient would like to leave. Consider urology follow up, if not due to chlamydial infection then consider cystoscopy in follow up. Local contact urology office information provided. Discharged home with family. Discharge Plan Departure Patient Disposition: Home Clinical Impression: Dysuria Activity Restrictions/Additional Instructions: Ms Cerda, Painful urination and frequency of urination, and even urgency of urination, of unclear cause. Urinalysis was unremarkable. Serum studies were sent as additionally, your kidney function was normal. Bladder scanning was done, you were able to empty your bladder quite well, no significant postvoid residual. Urine chlamydia/gonorrhea PCR test was sent, results are still pending at this time. If this test is negative, would consider urology follow up to see if you might be a candidate for cystoscopy to see if while you have your symptoms. We discussed advanced imaging CT abdomen and pelvis, declined for now. Follow up with Urology as above. Contact information given for local urology offices. Return earlier to this/nearest emergency department for any change worsening symptoms or any concerns prior. Thank you for allowing our team to evaluate you today. Prescriptions: No Action Cequa 0.09 % dropperette 1 drp EYE-BOTH BID Rhofade 1 % cream 1 applic topical QAM estradiol 0.0375 mg/24 hr patch weekly 1 patch transdermal QWEEK Qty: 12 3RF Rx Instructions: PLACE 1 PATCH ONTO THE SKIN EVERY WEEK FOR MENOPAUSE SYMPTOMS levothyroxine 75 mcg tablet 75 mcg PO DAILY Qty: 90 3RF progesterone micronized 200 mg capsule 200 mg PO DAILY Qty: 30 3RF zaleplon 5 mg capsule 5 mg PO BEDTIME PRN (Reason: sleep) Qty: 30 5RF Rx Instructions: must avoid high-fat meal/food immediately before taking dose Referrals: Jose Guadalupe Maldonado DO [Physician] - Yohannes Walton MD [Primary Care Provider] - Stand Alone Forms: Patient Portal/API/Survey
[2024-09-21 11:08] LABS: Bacteria Urine None Seen; RBC Urine None Seen (0-5/HPF); Squamous Epithelial Cell Urine 1-5 /HPF (0-5/HPF); Urine Volume Low Vol <10mL (spun); WBC Urine None Seen (0-5/HPF)
[2024-09-21 11:09] LABS: Culture Indicated Urine Cult Not Indicated; Mucus Urine 1+ (Negative)
[2024-09-21 12:15] LABS: Add Manual Diff / Slide Review NO; Basophils Absolute Auto 100 /uL (0-100); Basophils Percent Auto 0.6 % (0-2); Eosinophils Absolute Auto 0 /uL (0-450); Eosinophils Percent Auto 0.3 % (2-4); Hematocrit 38.1 % (36-46); Hemoglobin 13.1 g/dL (12.0-16.0); Lymphocytes Absolute Auto 700 /uL (1100-4500); Lymphocytes Percent Auto 8.1 % (25-40); Mean Corpuscular HGB Conc 34.4 % (30-36); Mean Corpuscular Hemoglobin 32.4 PG (26-34); Mean Corpuscular Volume 94.1 fL (80-100); Monocytes Absolute Auto 500 /uL (0-900); Monocytes Percent Auto 5.6 % (3-14); Neutrophils Absolute Auto 7600 /uL (1500-7000); Neutrophils Percent Auto 85.4 % (50-75); Platelet Count 245 X10^3/uL (150-400); Red Blood Cell Count 4.05 X10^6/uL (4.0-5.2); Red Cell Distribution Width 12.8 % (11.6-14.8); White Blood Cell Count 8.9 X10^3/uL (4.5-11.0)
[2024-09-21 12:28] LABS: Alanine Aminotransferase 18 IU/L (<35); Albumin 4.4 g/dL (3.5-5.0); Albumin Globulin Ratio 1.6 (1.0-2.8); Alkaline Phosphatase 45 U/L (38-126); Aspartate Aminotransferase 24 IU/L (14-36); BUN Creatinine Ratio 22.4 (6-22); Bilirubin Total 0.6 mg/dL (0.2-1.3); Blood Urea Nitrogen 13 mg/dL (7-17); Calcium 9.1 mg/dL (8.4-10.2); Carbon Dioxide 25 mmol/L (22-32); Chloride 100 mmol/L (98-107); Estimated Glomerular Filt Rate > 60 mL/min (>60); Globulin 2.7 g/dL (1.7-4.1); Glucose 113 mg/dL (80-110); HEMOLYSIS < 15 (0-50); Potassium 3.4 mmol/L (3.4-5.1); Sodium 132 mmol/L (137-145); Total Protein 7.1 g/dL (6.3-8.2)
[2024-09-21 12:29] LABS: Ethanol (ETOH) < 10 mg/dL
[2024-09-21 12:30] LABS: Ammonia (NH3) < 9 umol/L (9-30)
[2024-09-21 13:00] LABS: Thyroid Stimulating Hormone 4.29 uIU/mL (0.47-4.68)
[2024-09-21 16:31] LABS: Urine Chlamydia NOT DETECTED; Urine N gonorrhoeae NOT DETECTED
== END 2024-09-21 15:00 | disposition home or self-care (01) ==
PROVIDERS: Emergency Provider Emergency Medicine; PCP Internal Medicine
DX: R30.0 Dysuria (principal)
CPT/HCPCS: 36415; 51798; 80053; 80320; 81003; 81015; 82140; 84443; 85025; 87491; 87591; 99283

== ENCOUNTER → 2024-10-08 15:05 | Outpatient (CLI) | payer OTHER, SELFPAY | LOC: LAB 15:05 | PROVIDERS: PCP Internal Medicine; Visit Provider Specialist | DX: N89.8 Other specified noninflammatory disorders of vagina (principal) | CPT/HCPCS: 87480; 87510; 87660 ==

== ENCOUNTER → 2024-10-21 12:56 | Outpatient (CLI) | payer OTHER, SELFPAY ==
[2024-10-21 13:52] LABS: Hemoglobin A1C% w Est Avg Glu 5.2 % (4.0-6.0)
[2024-10-21 14:09] LABS: BUN Creatinine Ratio 17.4 (6-22); Blood Urea Nitrogen 12 mg/dL (7-17); Calcium 9.9 mg/dL (8.4-10.2); Carbon Dioxide 28 mmol/L (22-32); Chloride 104 mmol/L (98-107); Estimated Glomerular Filt Rate > 60 mL/min (>60); Glucose 90 mg/dL (80-110); HEMOLYSIS < 15 (0-50); Potassium 3.8 mmol/L (3.4-5.1); Sodium 141 mmol/L (137-145)
== END ==
PROVIDERS: PCP Internal Medicine; Referring Provider Internal Medicine; Visit Provider Internal Medicine
DX: R73.01 Impaired fasting glucose (principal)
CPT/HCPCS: 36415; 80048; 83036

== ENCOUNTER 2024-10-23 17:22 | Emergency (ER) | payer OTHER, SELFPAY ==
[2024-10-23] VITALS (10 sets, daily range): BP systolic 124–155; BP diastolic 79–90; PULSE 68–82; RESP 18; TEMP 36.5; O2SAT 96–100
--- NOTE | 2024-10-23 18:13 | ED_ITS ---
HPI - Neuro Symptoms/Deficit General Chief Complaint: Neuro Symptoms/Deficit Stated Complaint: decline mental faculties, tremors Time Seen by Provider: 10/23/24 18:12 Source: patient Mode of arrival: Ambulatory History of Present Illness HPI Narrative: 59-year-old woman postmenopausal, hypothyroidism who has been having increasing brain fog, weakness, confusion, low-grade headaches, nausea and now is experiencing both urinary and fecal incontinence. Sent by her primary care physician for further evaluation. She has not been having fevers, chest pain, palpitations. On Anticoagulants: No Related Data Home Medications Medication Instructions Recorded Confirmed cyclosporine 0.09 % eye drops in a 1 drp EYE-BOTH BID 09/21/24 10/21/24 dropperette (Cequa) oxymetazoline 1 % topical cream 1 applic topical QAM 09/21/24 10/21/24 (Rhofade) Previous Rx's Medication Instructions Recorded levothyroxine 75 mcg tablet 75 mcg PO DAILY #90 tabs 03/06/24 progesterone micronized 200 mg 200 mg PO DAILY #30 caps 06/08/24 capsule estradiol 0.05 mg/24 hr semiweekly 1 patch transdermal 2XW Menopause 10/08/24 transdermal patch symptoms #8 ea Allergies Allergy/AdvReac Type Severity Reaction Status Date / Time No Known Drug Allergies Allergy Verified 10/21/24 12:16 Review of Systems Constitutional Comments: Pertinent positive and negative findings as per HPI Hematologic/Lymphatic On Anticoagulants: No Patient History Medical History Altered mental status Headache Family history of Alzheimer's disease Left carpal tunnel syndrome Osteopenia Generalized anxiety disorder DJD (degenerative joint disease), cervical Chronic insomnia Impaired fasting glucose Arteriovenous malformation Menopausal syndrome Acquired hypothyroidism Surgical History Status post hysteroscopy (07/13/16) Status post dilation and curettage (07/13/16) Status post delivery Status post delivery Family History Grandfather Cancer Grandmother Diabetes mellitus Mother Age: 90 Alzheimer's disease Grandfather Cancer Grandmother Hypertension Social History number of children: 1 household members: spouse and children pets and animals: Yes education level: college occupational status: 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kh/caodaism: Buddhism travel history: other leisure activities: reading and other other: Running, walking, swimming seatbelt use: always working smoke detector in home: Yes fire extinguisher in home: Yes carbon monox detector in home: No firearms in home: No Smoking Status: Never smoker alcohol intake: current substance use type: does not use during the past year weight has: remained stable well-balanced diet: daily or most days daily servings fruits/ve-4 caffeine: Yes (2+ caffeine drinks per day) eating out: rarely or never Type(s) of exercise: other and running frequency: daily duration: other Smoking Status: Never smoker alcohol intake frequency: a few times a week Exam Initial Vital Signs Initial Vital Signs: Vital Signs Temperature 97.7 F 10/23/24 18:01 Pulse Rate 68 10/23/24 18:01 Respiratory Rate 18 10/23/24 18:01 Blood Pressure 145/90 H 10/23/24 18:01 Pulse Oximetry 100 10/23/24 18:01 Oxygen Delivery Method Room Air 10/23/24 18:01 General: Chronically ill-appearing, somewhat cognitively slowed but able to cooperate HEENT: Moist mucous membranes, normal sclera with reactive pupils, Respiratory: Lungs are clear to auscultation, no wheezing no rales no rhonchi. Full and symmetrical air movement Cardiac: Regular rate and rhythm no murmurs no bruits Abdomen: Soft, nontender, no rebound or guarding, no flank pain Skin: Pale but Warm and dry, no rashes Neurologic: Moving all extremities, no immediately obvious focal neurologic signs Extremities: No lower extremity edema Psych: Cooperative, appropriate insight and affect Course Orders Ordered: ED Orders 10/23/24 18:14 CT head/brain wo con Stat XR chest 1V Stat 10/23/24 18:24 Complete Blood Count AUTO DIFF Stat Comprehensive Metabolic Panel Stat 10/23/24 18:36 MR head/brain wo/w con Stat 10/24/24 01:17 UA Complete [Urinalysis and Microscopic] Stat Discontinued Medications Dexamethasone (Dexamethasone 10 Mg/Ml Vial) 10 mg IV NOW ONE Stop: 10/23/24 23:57 Last Admin: 10/24/24 00:00 Dose: 10 mg Documented By: Levetiracetam (Levetiracetam 250 Mg Tablet) 500 mg PO NOW ONE Stop: 10/24/24 01:29 Last Admin: 10/24/24 01:40 Dose: 500 mg Documented By: Vital Signs Vital signs: Vital Signs - 8 hr 10/23/24 19:29 10/23/24 21:39 10/23/24 21:40 Pulse Rate 71 78 77 Respiratory Rate 18 Blood Pressure 155/83 H Pulse Oximetry 100 99 99 Oxygen Delivery Method Room Air 10/23/24 21:40 10/23/24 22:00 10/23/24 22:00 Pulse Rate 74 Respiratory Rate Blood Pressure 134/79 136/82 Pulse Oximetry 100 Oxygen Delivery Method 10/23/24 22:29 10/23/24 22:30 10/23/24 22:31 Pulse Rate 82 79 Respiratory Rate Blood Pressure 142/79 H Pulse Oximetry 100 100 Oxygen Delivery Method 10/23/24 23:00 10/23/24 23:00 10/23/24 23:30 Pulse Rate 70 78 Respiratory Rate Blood Pressure 129/81 Pulse Oximetry 96 97 Oxygen Delivery Method 10/23/24 23:30 10/24/24 00:00 10/24/24 00:00 Pulse Rate 74 Respiratory Rate Blood Pressure 124/89 153/93 H Pulse Oximetry 100 Oxygen Delivery Method 10/24/24 00:30 10/24/24 00:30 Pulse Rate 74 Respiratory Rate Blood Pressure 139/78 Pulse Oximetry 100 Oxygen Delivery Method MDM - Neuro Symptoms/Deficit Lab Data 10/23/24 18:24 10/23/24 18:24 Labs: Lab Results 10/23/24 10/24/24 Range/Units 18:24 01:17 WBC 9.3 (4.5-11.0) X10^3/uL RBC 4.00 (4.0-5.2) X10^6/uL Hgb 12.9 (12.0-16.0) g/dL Hct 37.8 (36-46) % MCV 94.5 (80-100) fL MCH 32.2 (26-34) PG MCHC 34.1 (30-36) % RDW 12.8 (11.6-14.8) % Plt Count 251 (150-400) X10^3/uL Neut % (Auto) 82.0 H (50-75) % Lymph % (Auto) 11.0 L (25-40) % [place] % (Auto) 6.4 (3-14) % Eos % (Auto) 0.2 L (2-4) % Baso % (Auto) 0.4 (0-2) % Neut # (Auto) 7600 H (8412-8282) /uL Lymph # (Auto) 1000 L (4338-3880) /uL [place] # (Auto) 600 (0-900) /uL Eos # (Auto) 0 (0-450) /uL Baso # (Auto) 0 (0-100) /uL Sodium 137 (137-145) mmol/L Potassium 3.8 (3.4-5.1) mmol/L Chloride 104 (98-107) mmol/L Carbon Dioxide 24 (22-32) mmol/L BUN 14 (7-17) mg/dL Creatinine 0.68 (0.52-1.04) mg/dL Estimated GFR > 60 (>60) mL/min BUN/Creatinine Ratio 20.6 (6-22) Glucose 105 (80-110) mg/dL Calcium 9.6 (8.4-10.2) mg/dL Total Bilirubin 0.6 (0.2-1.3) mg/dL AST 30 (14-36) IU/L ALT 21 (<35) IU/L Alkaline Phosphatase 47 (38-126) U/L Total Protein 7.3 (6.3-8.2) g/dL Albumin 4.4 (3.5-5.0) g/dL Globulin 2.9 (1.7-4.1) g/dL Albumin/Globulin Ratio 1.5 (1.0-2.8) Urine Color Yellow Urine Appearance Clear Urine pH 5.5 (4.5-8.0) Ur Specific [place] 1.015 (1.000-1.035) Urine Protein Negative (Negative) Urine Glucose (UA) Negative (Negative) g/dL Urine Ketones Trace H (NEGATIVE) Urine Occult Blood Negative (Negative) Urine Nitrate Negative (Negative) Urine Bilirubin Negative (NEGATIVE) Urine Urobilinogen 0.2 (0.2) E.U./dL Ur Leukocyte Esterase Negative (NEGATIVE) Urine RBC None seen (0-5/HPF) Urine WBC None seen (0-5/HPF) Ur Squamous Epith Cells 0-1 /hpf (0-5/HPF) Urine Bacteria None seen (None) Ur Culture Indicated? Cult not indicated Vol Urine Centrifuged 10ml (spun) Imaging Data MR brain: Radiologist's Impression: PROCEDURE: MR HEAD/BRAIN WO/W CON INDICATIONS: altered mental status TECHNIQUE: Noncontrast axial T1 spin echo, axial T2 fast spin echo, sagittal and axial FLAIR, coronal T2 fast spin echo, axial gradient echo, axial diffusion and ADC through the brain. After the administration of contrast, axial and coronal and sagittal 3D VIBE or T1 spin echo with fat saturation through the brain. COMPARISON: [facility], CT, CT HEAD/BRAIN WO CON, 10/23/2024, 18:23. FINDINGS: Image quality: Motion degraded CSF Spaces: Basal cisterns are patent. No extra-axial fluid collections. Mass effect and partial effacement of the body of the lateral ventricles. Brain: Heterogeneous enhancing mass with areas of central hypoenhancement, likely necrosis measuring approximately 2.9 x 3.3 x 3.0 cm (AP by TV by CC). There is heterogeneous T2 hyperintense signal. The mass is centered within the left body of the corpus callosum and crosses midline. There is possible mild diffusion restriction centrally, may represent hypercellularity. There is significant surrounding edema, most pronounced within the left cerebral hemisphere. This results in mild rightward midline shift. There is an additional satellite nodule within the anterior medial left frontal lobe measuring approximately 5 mm (13/89) a just posterior to the mass measuring 8 mm (13/115. Sub subtle enhancement is seen within the right frontal lobe peripherally (13/129).. No intracranial bleeds. The brainstem appears normal. Diffusion-weighted images demonstrate no acute infarct. No chronic ischemic insults. Normal intravascular flow voids are present. Skull and face: Small foci of enhancement and calvarium are nonspecific, for example on the right (13/151, 13/139) Orbits appear normal. Sinuses: Sinuses and mastoids appear clear. 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 Findings are concerning for primary CONCRETE SWIMMING POOL INSTALLER neoplasm such as glioblastoma. There is significant surrounding edema and mild rightward midline shift. Recommend neurosurgery consultation. There are a few smaller satellite lesions as described above. Few small nonspecific foci of enhancement within the calvarium, attention on follow-up. Dictated by: Aquilino Nobles M.D. on 10/23/2024 at 21:56 MDM Narrative Medical decision making narrative: CC: Brain fog, fatigue, new urinary and fecal incontinence with increasing falls Complicating co-morbidities: Hypothyroidism Data collected from: patient, , primary care physician who is in the emergency department Medical records reviewed: Primary care note from October 21 is reviewed Differential considered: Subdural hematoma, acute intracranial hemorrhage, stroke, brain tumor or displacing mass, meningitis Exam documented above, pertinent findings include: Patient is somewhat frail appearing, difficulty in holding still, continuously tapping her feet, she is moving all extremities and able to complete full sentences with the appropriate thought process Lab Test results independently reviewed as above. Pertinent findings: CBC is unremarkable Chemistries are reassuring Imaging studies independently reviewed: Chest x-ray today is unremarkable CT scan shows focus of abnormal low density within the left frontal lobe, reviewed in real-time with Radiology, MRI has been ordered MRI shows: Heterogeneous enhancing mass with areas of likely central necrosis centered within the left body of the corpus callosum, crossing midline. Findings are concerning for primary CONCRETE SWIMMING POOL INSTALLER neoplasm such as glioblastoma. There is significant surrounding edema and mild rightward midline shift. Recommend neurosurgery consultation. Consultations: neurosurgery PATY, Joe Jacome. Recommends dexamethasone 4 mg every 6 hours, 500 mg of Keppra b.i.d. and transfer to the [facility] with next available bed Treatments: 10 mg of IV dexamethasone for the swelling appreciated on the MRI. Images of the MRI are pushed to [place] in the [facility] for neurosurgical consultation Discussion: 59-year-old woman with increasing brain fog, gait instability, falls, urinary and fecal incontinence within the last 24 hours with MRI showing a likely glioblastoma centered within the left body of the corpus callosum crossing midline. After consultation with Neurosurgery at the [facility] medications as recommended above and bed has been requested. Patient and her are updated on findings. They do understand that bed availability maybe sometime tomorrow. We will provide all recommended medications and any pain medications or comfort 125am Bed is available. Patient and her are updated. Copies of CT scan and MRI reports were shared with the . S transport is arranged and patient will go to the [facility] for evaluation and treatment of her presumed glioblastoma Discharge Plan Departure Patient Disposition: [facility] Clinical Impression: Glioblastoma multiforme of frontal lobe, Acute alteration in mental status Prescriptions: No Action Cequa 0.09 % dropperette 1 drp EYE-BOTH BID Rhofade 1 % cream 1 applic topical QAM levothyroxine 75 mcg tablet 75 mcg PO DAILY Qty: 90 3RF progesterone micronized 200 mg capsule 200 mg PO DAILY Qty: 30 3RF estradiol 0.05 mg/24 hr patch semiweekly 1 patch transdermal 2XW Qty: 8 11RF Rx Instructions: apply 1 patch for 3 days alternating with 1 patch for 4 days each week for Referrals: Yohannes Walton MD [Primary Care Provider] -
--- NOTE | 2024-10-23 18:14 | DI.CT.S_ITS ---
PROCEDURE: CT HEAD/BRAIN WO CON INDICATIONS: multiple falls TECHNIQUE: Noncontrast 4.5 mm thick angled axial sections acquired from the foramen magnum to the vertex, with coronal and sagittal reformats. For radiation dose reduction, the following was used: automated exposure control, adjustment of mA and/or kV according to patient size. COMPARISON: None. FINDINGS: Image quality: Diagnostic. CSF spaces: Basal cisterns are patent. No extra-axial fluid collections. The ventricles are symmetric in size and shape. Brain: There is an area of low density seen within the left frontal lobe, measuring 4.2 x 3.4 cm in greatest axial dimension. Mild mass effect is seen, with potential 4 mm midline shift. No acute hemorrhage is seen. The There is cerebral volume loss, with resultant ventricular and sulcal prominence. There are periventricular and deep white matter chronic small vessel ischemic changes. There is intracranial internal carotid artery atherosclerosis. Skull and face: Calvarium and visualized facial bones appear intact, without suspicious lesions. Sinuses: Visualized sinuses and mastoids are clear. IMPRESSION: There is a focus of abnormal low density seen within the left frontal lobe. Although nonspecific, concern is raised for neoplasm. (The scheduled brain MRI is expected to provide additional diagnostic information.) Note: Case discussed by telephone with Dr. Siddiqui at 6:[address] [place] time on October 23, 2024. Dictated by: Everette Hernandez M.D. on 10/23/2024 at 17:38 Approved by: Everette Hernandez M.D. on 10/23/2024 at 17:41
--- NOTE | 2024-10-23 18:14 | DI.RAD.S_ITS ---
PROCEDURE: XR CHEST 1V INDICATIONS: confusion TECHNIQUE: One view of the chest was acquired. COMPARISON: None. FINDINGS: Surgical changes and devices: None. Lungs and pleura: Lungs are clear. No pleural effusions or pneumothorax. Mediastinum: Mediastinal contours appear normal. Heart size is normal. Bones and chest wall: No suspicious bony lesions. Overlying soft tissues appear unremarkable. IMPRESSION: No acute cardiopulmonary pathology. Dictated by: Carson Villasenor M.D. on 10/23/2024 at 18:58 Approved by: Carson Villasenor M.D. on 10/23/2024 at 18:58
[2024-10-23 18:34] LABS: Add Manual Diff / Slide Review NO; Basophils Absolute Auto 0 /uL (0-100); Basophils Percent Auto 0.4 % (0-2); Eosinophils Absolute Auto 0 /uL (0-450); Eosinophils Percent Auto 0.2 % (2-4); Hematocrit 37.8 % (36-46); Hemoglobin 12.9 g/dL (12.0-16.0); Lymphocytes Absolute Auto 1000 /uL (1100-4500); Mean Corpuscular HGB Conc 34.1 % (30-36); Mean Corpuscular Hemoglobin 32.2 PG (26-34); Mean Corpuscular Volume 94.5 fL (80-100); Monocytes Absolute Auto 600 /uL (0-900); Monocytes Percent Auto 6.4 % (3-14); Neutrophils Absolute Auto 7600 /uL (1500-7000); Platelet Count 251 X10^3/uL (150-400); Red Cell Distribution Width 12.8 % (11.6-14.8); White Blood Cell Count 9.3 X10^3/uL (4.5-11.0)
--- NOTE | 2024-10-23 18:36 | DI.MRI.S_ITS ---
PROCEDURE: MR HEAD/BRAIN WO/W CON INDICATIONS: altered mental status TECHNIQUE: Noncontrast axial T1 spin echo, axial T2 fast spin echo, sagittal and axial FLAIR, coronal T2 fast spin echo, axial gradient echo, axial diffusion and ADC through the brain. After the administration of contrast, axial and coronal and sagittal 3D VIBE or T1 spin echo with fat saturation through the brain. COMPARISON: [facility], CT, CT HEAD/BRAIN WO CON, 10/23/2024, 18:23. FINDINGS: Image quality: Motion degraded CSF Spaces: Basal cisterns are patent. No extra-axial fluid collections. Mass effect and partial effacement of the body of the lateral ventricles. Brain: Heterogeneous enhancing mass with areas of central hypoenhancement, likely necrosis measuring approximately 2.9 x 3.3 x 3.0 cm (AP by TV by CC). There is heterogeneous T2 hyperintense signal. The mass is centered within the left body of the corpus callosum and crosses midline. There is possible mild diffusion restriction centrally, may represent hypercellularity. There is significant surrounding edema, most pronounced within the left cerebral hemisphere. This results in mild rightward midline shift. There is an additional satellite nodule within the anterior medial left frontal lobe measuring approximately 5 mm (13/89) a just posterior to the mass measuring 8 mm (13/115. Sub subtle enhancement is seen within the right frontal lobe peripherally (13/129).. No intracranial bleeds. The brainstem appears normal. Diffusion-weighted images demonstrate no acute infarct. No chronic ischemic insults. Normal intravascular flow voids are present. Skull and face: Small foci of enhancement and calvarium are nonspecific, for example on the right (13/151, 13/139) Orbits appear normal. Sinuses: Sinuses and mastoids appear clear. 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 There is significant surrounding edema and mild rightward midline shift. Recommend neurosurgery consultation. There are a few smaller satellite lesions as described above. Few small nonspecific foci of enhancement within the calvarium, attention on follow-up. Dictated by: Aquilino Nobles M.D. on 10/23/2024 at 21:56 Approved by: Aquilino Nobles M.D. on 10/23/2024 at 22:06
[2024-10-23 18:44] LABS: Alanine Aminotransferase 21 IU/L (<35); Albumin 4.4 g/dL (3.5-5.0); Albumin Globulin Ratio 1.5 (1.0-2.8); Alkaline Phosphatase 47 U/L (38-126); Aspartate Aminotransferase 30 IU/L (14-36); BUN Creatinine Ratio 20.6 (6-22); Bilirubin Total 0.6 mg/dL (0.2-1.3); Blood Urea Nitrogen 14 mg/dL (7-17); Calcium 9.6 mg/dL (8.4-10.2); Carbon Dioxide 24 mmol/L (22-32); Chloride 104 mmol/L (98-107); Estimated Glomerular Filt Rate > 60 mL/min (>60); Globulin 2.9 g/dL (1.7-4.1); Glucose 105 mg/dL (80-110); HEMOLYSIS < 15 (0-50); Potassium 3.8 mmol/L (3.4-5.1); Sodium 137 mmol/L (137-145); Total Protein 7.3 g/dL (6.3-8.2)
[2024-10-24] VITALS: BP 153/93; PULSE 74; O2SAT 100
[2024-10-24] MEDS: DEXAMETHASONE 10 MG/ML VIAL IV
[2024-10-24 00:30] VITALS: BP 139/78; PULSE 74; O2SAT 100
--- NOTE | 2024-10-24 01:22 | PC.NURSE ---
Patient ambulated to the bathroom
[2024-10-24 01:23] LABS: Appearance Urine UA CLEAR; Bilirubin Urine UA NEGATIVE (NEGATIVE); Color Urine UA YELLOW; Glucose Urine UA NEGATIVE (Negative); Ketones Urine UA TRACE (NEGATIVE); Leukocyte Esterase Urine UA NEGATIVE (NEGATIVE); Nitrite Urine UA NEGATIVE (Negative); Occult Blood Urine UA NEGATIVE (Negative); Protein Urine UA NEGATIVE (Negative); Specific Gravity Urine UA 1.015 (1.000-1.035); Urobilinogen Urine UA 0.2 E.U./dL (0.2)
[2024-10-24 01:29] LABS: pH Urine UA 5.5 (4.5-8.0)
[2024-10-24] MEDS: levETIRAcetam 250 MG TABLET 500 MG PO (01:40)
[2024-10-24 01:41] LABS: Bacteria Urine None Seen; Culture Indicated Urine Cult Not Indicated; RBC Urine None Seen (0-5/HPF); Squamous Epithelial Cell Urine 0-1 /HPF (0-5/HPF); Urine Volume 10mL (spun); WBC Urine None Seen (0-5/HPF)
== END 2024-10-24 02:43 | disposition short-term general hospital (02) ==
PROVIDERS: Emergency Provider Emergency Medicine; PCP Internal Medicine
DX: C71.1 Malignant neoplasm of frontal lobe (principal); R41.82 Altered mental status, unspecified; R51.9 Headache, unspecified
CPT/HCPCS: 36415; 70450; 70553; 71045; 80053; 81001; 85025; 96374; 99284; A9579; J1100